=== PATIENT | male | born 1930 | race Caucasian/White ===

== ENCOUNTER 2019-03-27 08:28 | Inpatient (IN) | payer MEDICARE ==
[2019-03-24 09:06] VITALS: BMI 24.5
--- NOTE | 2019-03-26 11:20 | HP ---
HISTORY AND PHYSICAL REASON FOR ADMISSION: Surgery scheduled for 03/27/2019 Gama Gonzalez is an 88-year-old patient seen with symptomatic right knee osteoarthritis. We discussed options for treatment. He elected to proceed with right total knee arthroplasty. Consent was obtained. Medical clearance provided by Dr. Malloy. PAST MEDICAL HISTORY: Hypertension, gastroesophageal reflux disease. PAST SURGICAL HISTORY: Left total knee arthroplasty, bilateral shoulder surgery. DAILY MEDICATIONS: Aspirin, atenolol, Prilosec. ALLERGIES: PENICILLIN. SOCIAL HISTORY: He denies tobacco use. PHYSICAL EXAMINATION: Evaluation of the right knee is range of motion is -7 to 90. Tenderness medial joint line. Crepitus medial patellofemoral compartments. Pain with patellofemoral compression. Ligaments stable. Hip rotation without pain. His distal neurovascular exam is intact. RADIOGRAPHS: Radiographs of the right knee revealed moderate osteoarthritis. IMPRESSION: 1. Right knee osteoarthritis. 2. Hypertension. 3. Gastroesophageal reflux disease. PLAN: Right total knee arthroplasty. Surgery 03/27/2019. MMODL / IJN: [id number] /
[~2019-03-27 08:28] MED LIST: ACETAMINOPHEN TAB 500 MG TAB PO ONE; LIDOCAINE 1% 20 ML VIAL (10MG/ML) FOR IV START INTRADERMA PRN; MELOXICAM 7.5 MG TAB PO ONE; MORPHINE SULFATE 2 MG/ML SYRINGE IV PRN; ONDANSETRON 4 MG/2 ML VIAL IVP ONE; ONDANSETRON 4 MG/2 ML VIAL IVP PRN; TRANEXAMIC ACID 1,000 MG in SODIUM CHLORIDE 0.9% 100 ML IVPB ONE
[2019-03-27] MEDS: LACTATED RINGERS 1,000 ML IV SCH (09:30)
[2019-03-27] MEDS ORDERED: MIDAZOLAM (PF) 2 MG/2 ML VIAL IVP ONE (09:43)
--- NOTE | 2019-03-27 10:01 | P.ANPRN ---
Procedure Note - Anesthesia - Nerve Block Performed Right Adductor Canal Time Out Performed: Yes (:42) Date of Procedure: 03/27/19 Procedure Start Time: : Procedure Stop Time: : Location of Patient Procedure: PreOp Indication: Acute Post-Operative Pain, Requested by physician (Dr Jones) Sedation Type: Sedate with meaningful contact maintained Preparation: Sterile Prep, Sterile Dressing Position: Supine Catheter: Indwelling Needle Types: On-Q Needle Gauge: 21 Technique: Ultrasound Injectate: 0.5% Ropivacaine (see comment for volume) (20cc) Blood Aspirated: No Pain Paresthesia on Injection Noted: No Resistance on Injection: Normal Events: Uneventful and Well Tolerated
[2019-03-27] MEDS ORDERED: ROPIVACAINE 246.25 MG, EPINEPHrine 0.5 MG, KETOROLAC 30 MG, cloNIDine HCL/PF 80 MCG, WA... MISCELLANE ONE ×5 (10:18)
[2019-03-27] MEDS ORDERED: fentaNYL (PF) 50 MCG/ML 2 ML AMP ONE (11:00)
[2019-03-27] MEDS ORDERED: SODIUM CHLORIDE 0.9% 100 ML BAG ONE (11:00)
[2019-03-27] MEDS ORDERED: TRANEXAMIC ACID 1,000 MG/10 ML VIAL ONE (11:00)
[2019-03-27] MEDS ORDERED: MIDAZOLAM 2 MG/2 ML VIAL ONE (11:00)
[2019-03-27] MEDS ORDERED: LACTATED RINGERS 1,000 ML IV ONE (11:46)
[2019-03-27] MEDS ORDERED: ceFAZolin 3,000 MG in SODIUM CHLORIDE 0.9% IRRIGATIO 3,000 ML IRRIGATION ONE (11:57)
[2019-03-27] MEDS ORDERED: HYDROmorphone 0.5 MG/0.5 ML SYRINGE IVP PRN ×3 (12:57)
[2019-03-27] MEDS ORDERED: ONDANSETRON 4 MG/2 ML VIAL IVP PRN (12:57)
[2019-03-27] MEDS ORDERED: NALOXONE 0.4 MG/ML 1 ML VIAL IV PRN (12:57)
--- NOTE | 2019-03-27 12:57 | P.OP ---
Date of Procedure: 03/27/19 Preoperative Diagnosis: Right knee osteoarthritis Postoperative Diagnosis: Same Procedure(s) Performed: Right total knee arthroplasty Implants: 1. Depuy attune size 7 right cruciate-retaining cemented femur 2. Depuy attune size 8 cemented tibial baseplate 3. Depuy attune size 7 5 mm fixed bearing cruciate retaining polyethylene tibial insert 4. Depuy attune 41 mm all polyethylene cemented patella Anesthesia: regional (Adductor canal catheter), local, spinal Surgeon: Kip Jones Insurance Application Investigator #1: Maynor Vivar Estimated Blood Loss (ml): 40 Pathology: other (Bone) Condition: stable Disposition: PACU Indications for Procedure: 88-year-old patient seen with symptomatic right knee osteoarthritis. After treatment options were discussed, he elected to proceed with total knee arthroplasty. Operative Findings: See description of procedure Description of Procedure: Patient was taken to the operative suite after having an adductor canal catheter placed by the department of anesthesia for postoperative pain management. Patient underwent a spinal anesthetic by the department of anesthesia. Patient was given preoperative IV intake antibiotics and TXA. A well-padded tourniquet was placed about the right lower extremity. The lower extremity was then prepped and draped in the normal sterile orthopedic fashion. The extremity was elevated, a tourniquet was insufflated to 300. A standard anterior incision was made sharply through skin. Dissection was taken down through the subcutaneous soft tissues down to the extensor mechanism. A medial arthrotomy was performed, patella was everted and knee was flexed. There was advanced osteoarthritis noted. I introduced my distal intramedullary femoral drill. I then introduced the distal femoral cutting jig. Deepak OLSON secured the cutting jig with 2 pins. I held retractors in position while Deepak OLSON performed the distal femoral resection through the guide area we now removed her distal femoral cutting guide. We now placed our 4-in-1 femoral cutting block and positioned and it was secured with 2 pins by Deepak OLSON while I held the block in position. The distal femoral finishing was now completed. A proximal tibial cutting guide was positioned. I held the guide in the appropriate position with both hands well Deepak OLSON inserted stabilizing pins into the guide. Proximal tibial cut was made. We now placed a trial femoral component into position, along with an appropriate size tibial tray and insert. We now took the knee through range of motion and had full extension good flexion and good overall soft tissue balance noted. The patella was everted and stabilized with 2 towel clips held by Deepak OLSON while I performed a flush with patellar quad tendon utilizing a fresh sawblade. We templated the patella, appropriate drill holes were made. An appropriate trial patella was positioned, knee was taken through full range of motion with the patella tracking very nicely. The trial patella was removed. Drill holes were made through the femoral component. All trial components were removed after marking off the appropriate rotation of the tibia. Retractors were now positioned along the proximal tibia. An appropriate keel punch was made with the appropriate size tibial guide by myself on Deepak OLSON assisted by holding retractors. At this point appropriate size implants were chosen and opened. The joint was irrigated copiously with pulse lavage mechanical irrigation. The posterior capsule was infiltrated with local analgesic. The wound was irrigated with pulse lavage mechanical irrigation. We mixed antibiotic methylmethacrylate. We placed the knee into flexion. We placed multiple retractors assisted by Deepak OLSON to expose the proximal tibia. Once the methyl methacrylate was ready, the tibial component was cemented into place removing any excess methylmethacrylate form by both myself and Deepak OLSON. The femoral component was cemented into place removing the removing any excess methylmethacrylate performed by both myself and Deepak OLSON. We then inserted the appropriate size polyethylene tibial insert. We made sure that it was locked into position. We took the knee into full extension, and then back in a flexion making sure we had removed any excess methylmethacrylate. The patellar component was then cemented down and secured with clamp. Excess methylmethacrylate removed. We kept the knee in full extension, patellar clamp in position until methylmethacrylate had hardened. Once it had hardened the patellar clamp was removed. The knee was taken through full range of motion. The patella tracked nicely. There was good soft tissue balancing. The tourniquet was now released. Additional hemostasis was achieved via electrocautery. A second gram of TXA was given. The wound again was irrigated with pulse lavage mechanical irrigation. The superficial soft tissues were infiltrated local analgesic. The extensor mechanism was repaired with Vicryl. We checked the repair with range of motion and it was stable. The subcutaneous soft tissues were repaired with Vicryl in layers. The skin was approximated with pernio/Dermabond. Sterile dressings were applied followed by loose web roll and Graham bandage. The patient was transferred to a bed, and taken to recovery in stable and satisfactory condition. Deepak OLSON assisted with this complex procedure.
[2019-03-27] MEDS ORDERED: ROPIVACAINE 1,100 MG, SODIUM CHLORIDE 0.9% 500 ML 330 ML MISCELLANE PRN ×2 (13:05)
--- NOTE | 2019-03-27 14:22 | XR ---
EXAMINATION TYPE: XR knee limited RT DATE OF EXAM: 03/27/2019 CLINICAL HISTORY: Postoperative evaluation Two views of the right knee are submitted. Identified are changes of total knee arthroplasty with femoral and tibial components appearing well seated. Postsurgical soft tissue changes are noted. Alignment is anatomic.
[2019-03-27] MEDS: SODIUM CHLORIDE 0.9% 1,000 ML IV SCH (18:21)
[2019-03-27] MEDS: SENNOSIDES-DOCUSATE SODIUM 1 EACH TAB PO SCH (20:35)
[2019-03-28] MEDS: LACTATED RINGERS 1,000 ML IV SCH (05:04)
--- NOTE | 2019-03-28 07:20 | P.PN ---
Progress Note - Text The patient is status post[right ] adductor canal catheter placement. The catheter was placed for postoperative pain control, status post total [ right knee] arthroplasty. Ropivacaine 0.2% is infusing at[8 ] mLs per hour. The patient has no complaints of[ right] lower extremity numbness or weakness. Patient's VAS score is[ 0]-10. Assessment: Patient's adductor canal catheter is in place and working appropriately. Plan: continue infusion and adjust it as needed.
[2019-03-28 07:57] LABS: Basophils # (A) 0.1 k/uL (0-0.2); Basophils % (A) 1 %; Eosinophils # (A) 0.3 k/uL (0-0.7); Eosinophils % (A) 5 %; HCT 39.7 % (39.0-53.0); HGB 12.7 gm/dL (13.0-17.5); Lymphocytes # (A) 1.2 k/uL (1.0-4.8); Lymphocytes % (A) 16 %; MCH 29.9 pg (25.0-35.0); MCHC 32.1 g/dL (31.0-37.0); MCV 93.3 fL (80.0-100.0); Mean Platelet Volume 7.1; Monocytes # (A) 0.5 k/uL (0-1.0); Monocytes % (A) 7 %; Neutrophils % (A) 68 %; Platelet Count 149 k/uL (150-450); RBC 4.25 m/uL (4.30-5.90); WBC 7.3 k/uL (3.8-10.6)
[2019-03-28] MEDS: ENOXAPARIN 40 MG/0.4 ML SYRINGE SQ SCH (08:35)
[2019-03-28] MEDS: SODIUM CHLORIDE 0.9% 1,000 ML IV SCH (08:38)
[2019-03-28] MEDS ORDERED: ATENOLOL 25 MG TAB PO SCH (09:00)
--- NOTE | 2019-03-28 12:39 | P.PN ---
Subjective Progress Note Date: 03/28/19 Principal diagnosis: Status post right total knee arthroplasty Patient was evaluated at bedside today, is resting comfortably in a hospital chair. He did ambulate with therapy today, he is not on stairs at this time. Patient notes adequate pain control. Denies any chest pain or shortness of breath. Objective - Vital Signs Vital signs: Vital Signs Temp 98.3 F 03/28/19 07:00 Pulse 59 L 03/28/19 07:00 Resp 16 03/28/19 07:00 BP 132/62 03/28/19 07:00 Pulse Ox 99 03/28/19 07:00 Intake & Output 03/27/19 03/28/19 03/28/19 18:59 06:59 18:59 Intake Total 1701 600 354 Output Total 440 600 Balance 1261 0 354 Intake: IV 1701 Intake, IV Titration 600 Amount Sodium Chloride 0.9% 1, 600 000 ml @ 50 mls/hr IV . Q20H DURGA Rx#:[id number] Oral 354 Output: Urine 400 600 Estimated Blood Loss 40 - Exam Right lower extremity: Incision is clean, dry, and intact. The exofin fusion tape is in good condition. There is minimal soft tissue swelling and ecchymosis surrounding the medial and lateral aspects of the incision. Calf is soft, no tenderness with palpation. Plantar flexion, dorsiflexion, EHL, FHL are intact. Sensory exam to light touch throughout the extremity is intact, dorsal pedis pulses 2+. - Labs CBC & Chem 7: 03/28/19 07:27 Labs: Abnormal Lab Results - Last 24 Hours (Table) 03/28/19 Range/Units 07:27 RBC 4.25 L (4.30-5.90) m/uL Hgb 12.7 L (13.0-17.5) gm/dL Plt Count 149 L (150-450) k/uL Assessment and Plan Plan: Assessment: Postop day #1 status post right total knee arthroplasty Plan: Pain control, oral medication as needed GI and DVT prophylaxis, continue current medication Encourage incentive spirometer Continue her physical therapy, stair training Ice and elevate often/daily dressing changes Medical recommendations Discharge planning: Due to patient's age, assistance at home and inability to do stairs at this time, would like to keep patient one additional night. Plan for discharge home tomorrow Time with Patient: Less than 30
[2019-03-28] MEDS: HYDROcodone/APAP 5-325MG 1 EACH TAB PO PRN ×2 (14:17→19:56)
[2019-03-28] MEDS: SENNOSIDES-DOCUSATE SODIUM 1 EACH TAB PO SCH (19:56)
[2019-03-29] MEDS: LACTATED RINGERS 1,000 ML IV SCH (01:18)
[2019-03-29] MEDS: SODIUM CHLORIDE 0.9% 1,000 ML IV SCH (01:18)
[2019-03-29] MEDS: HYDROcodone/APAP 5-325MG 1 EACH TAB PO PRN ×3 (05:30→20:46)
[2019-03-29] MEDS: ENOXAPARIN 40 MG/0.4 ML SYRINGE SQ SCH (09:15)
--- NOTE | 2019-03-29 11:43 | P.PN ---
Subjective Progress Note Date: 03/29/19 Principal diagnosis: Status post right total knee arthroplasty Patient was evaluated at bedside today, is resting comfortably in a hospital chair. Patient did have a very difficult time getting out of chair yesterday, he had significant discomfort. Denies chest pain or shortness of breath. Objective - Vital Signs Vital signs: Vital Signs Temp 97.8 F 03/29/19 07:00 Pulse 64 03/29/19 07:00 Resp 15 03/29/19 08:00 BP 127/68 03/29/19 07:00 Pulse Ox 97 03/29/19 07:00 Intake & Output 03/28/19 03/29/19 03/29/19 18:59 06:59 18:59 Intake Total 826 480 240 Balance 826 480 240 Intake: Oral 826 480 240 Other: # Voids 3 1 - Exam Right lower extremity: Incision is clean, dry, and intact. The exofin fusion tape is in good cond ition. There is minimal soft tissue swelling and ecchymosis surrounding the medial and lateral aspects of the incision. Calf is soft, no tenderness with palpation. Plantar flexion, dorsiflexion, EHL, FHL are intact. Sensory exam to light touch throughout the extremity is intact, dorsal pedis pulses 2+. - Labs CBC & Chem 7: 03/28/19 07:27 Assessment and Plan Plan: Assessment: Postop day #2 status post right total knee arthroplasty Plan: Pain control, oral medication as needed GI and DVT prophylaxis, continue current medication Encourage incentive spirometer Continue her physical therapy, stair training Ice and elevate often/daily dressing changes Medical recommendations Discharge planning: With patient having difficulty getting in and out of bed and out of the chair, considering his age and other medical comorbidities, will try for rehab discharge. Social work/case management has been notified and are working on this. Time with Patient: Less than 30
[2019-03-29 19:48] VITALS: RESP 14
[2019-03-29] MEDS: SENNOSIDES-DOCUSATE SODIUM 1 EACH TAB PO SCH (20:45)
[2019-03-30] MEDS: SODIUM CHLORIDE 0.9% 1,000 ML IV SCH (00:15)
[2019-03-30] MEDS: LACTATED RINGERS 1,000 ML IV SCH (00:16)
[2019-03-30 08:28] VITALS: BP 110/66; PULSE 96; TEMP 98.9
[2019-03-30] MEDS: ENOXAPARIN 40 MG/0.4 ML SYRINGE SQ SCH (08:37)
[2019-03-30] MEDS: HYDROcodone/APAP 5-325MG 1 EACH TAB PO PRN (08:40)
[2019-03-30 08:58] LABS: Basophils % (A) 1 %; Eosinophils # (A) 0.6 k/uL (0-0.7); Eosinophils % (A) 9 %; HCT 39.5 % (39.0-53.0); HGB 12.5 gm/dL (13.0-17.5); Lymphocytes # (A) 0.9 k/uL (1.0-4.8); Lymphocytes % (A) 14 %; MCH 29.8 pg (25.0-35.0); MCHC 31.7 g/dL (31.0-37.0); MCV 93.7 fL (80.0-100.0); Mean Platelet Volume 7.4; Monocytes # (A) 0.6 k/uL (0-1.0); Monocytes % (A) 10 %; Neutrophils # (A) 4.2 k/uL (1.3-7.7); Neutrophils % (A) 63 %; Platelet Count 144 k/uL (150-450); RBC 4.22 m/uL (4.30-5.90); RDW 13.9 % (11.5-15.5); WBC 6.7 k/uL (3.8-10.6)
[2019-03-30] MEDS ORDERED: PANTOPRAZOLE 40 MG TABLET PO SCH (10:15)
--- NOTE | 2019-03-30 13:08 | P.PN ---
Subjective Progress Note Date: 03/30/19 Principal diagnosis: Status post right total knee arthroplasty Patient was evaluated at bedside today, is resting comfortably in a hospital chair. Denies chest pain or shortness of breath. Objective - Vital Signs Vital signs: Vital Signs Temp 98.9 F 03/30/19 07:00 Pulse 96 03/30/19 07:00 Resp 14 03/30/19 07:00 BP 110/66 03/30/19 07:00 Pulse Ox 95 03/30/19 07:00 Intake & Output 03/29/19 03/30/19 03/30/19 18:59 06:59 18:59 Intake Total 476 Output Total 400 Balance 476 -400 Intake: Oral 476 Output: Urine 400 Other: # Voids 1 - Exam Right lower extremity: Incision is clean, dry, and intact. The exofin fusion tape is in good condition. There is minimal soft tissue swelling and ecchymosis surrounding the medial and lateral aspects of the incision. Calf is soft, no tenderness with palpation. Plantar flexion, dorsiflexion, EHL, FHL are intact. Sensory exam to light touch throughout the extremity is intact, dorsal pedis pulses 2+. - Labs CBC & Chem 7: 03/30/19 07:36 Labs: Abnormal Lab Results - Last 24 Hours (Table) 03/30/19 Range/Units 07:36 RBC 4.22 L (4.30-5.90) m/uL Hgb 12.5 L (13.0-17.5) gm/dL Plt Count 144 L (150-450) k/uL Lymphocytes # 0.9 L (1.0-4.8) k/uL Assessment and Plan Plan: Assessment: Postop day #3 status post right total knee arthroplasty Plan: Pain control, plan for discharge on Mary[place] 5 mg/5 mg GI and DVT prophylaxis, aspirin 81 mg twice a day Encourage incentive spirometer Continue her physical therapy, stair training Ice and elevate often/daily dressing changes Medical recommendations Discharge planning: We'll discharge to rehab today Time with Patient: Less than 30
--- NOTE | 2019-03-30 13:09 | P.DS ---
Providers Date of admission: 03/27/2019 Expected date of discharge: 03/30/19 Attending physician: Kip Jones Consults: 03/27/19 12:57 Consult Physician Routine Consulting Provider: Manuel Malloy Reason/Comments: Medical management Do you want consulting provider notified?: Yes Primary care physician: Manuel Malloy Hospital Course: Date of admission: 03/27/2019 Date of discharge: 03/30/2019 Admission diagnosis: Status post right total knee arthroplasty Discharge diagnosis: Same Attending physician: Dr. Jones Surgical procedures: Right total knee arthroplasty Brief history: Patient is a 88-year-old male with a history of progressive primary right knee osteoarthritis. At this point patient has failed conservative treatment measures and has opted to proceed with a elective right total knee arthroplasty. Hospital course: Details of patient's surgery can be found in operative report. Patient tolerated the procedure well and was subsequently transported to orthopedic floor. Patient's orthopeidc and medical care was provided daily. Patient had daily laboratory tests performed for evaluation of overall blood counts. Patient had daily physical therapy to include strengthening range of motion as well as education with walker ambulation. Patient had daily CPM usage as part of their physical therapy program. Patient was treated with Lovenox for their postoperative DVT prophylaxis during their inpatient stay. Patient was noted to have a relatively uneventful postoperative course. Patient reported satisfactory pain control with oral pain medications by postoperative day 0. Patient showed satisfactory progress with physical therapy. Patient moved steadily through the program and had no difficulty meeting the goals by postoperative day 3. Given patient's otherwise satisfactory course and having met physical therapy goals, plan is to discharge patient rehab on postoperative day 3. Discharge condition/disposition: Patient will be discharged to rehab in stable condition. Discharge medications: Instructions are given on resumption of patient's normal daily medications per primary care recommendation, in addition patient will be p rescribed [place] 5 mg/325 mg, Colace 100 mg, Pepcid 20 mg, aspirin 81 mg. Discharge instructions: 1. Wound care and infection precautions, keep incision dry and covered while showering, no lotions, creams, moisturizers. No soaking, tubs, pools, hottubs. Do not scrub over the incision. 2. Weight-bear as tolerated with walker / cane until follow-up. 3. Ice and elevate when necessary. Do not exceed 20 minutes per hour with ice pack. 4. Utilize compression sleeve until seen at first follow up appointment. 5. Visiting nursing care. 6. Home physical therapy including home CPM. 7. Pain meds and anticoagulants per prescription. 8. Pain medication has potential to cause constipation. Increase oral fluid and fiber intake. Contact primary care provider if you have not had a bowel movement within 48 hours after discharge 9. No anti-inflammatory medication until discussed at first post operative visit, this including Motrin, Aleve, Mobic, Diclofenac. 10. Follow up in office at 2 weeks postop with Deepak Vivar PA-C 11. Follow up with your primary care doctor 7-10 days after discharge. 12. Contact [facility] with any questions, . Procedures: Right total knee arthroplasty Patient Condition at Discharge: Good Plan - Discharge Summary Discharge Rx Participant: Yes New Discharge Prescriptions: New Aspirin [Adult Low Dose Aspirin EC] 81 mg PO BID #60 tablet. Hydrocodone/Acetaminophen [[place] 5-325] 1 - 2 each PO Q6HR PRN #56 tab PRN Reason: Pain Docusate [Colace] 100 mg PO DAILY #15 capsule Omeprazole [PriLOSEC] 20 mg PO AC-BRKFST #1 cap No Action amLODIPine BESYLATE/BENAZEPRIL [amLODIPine BESYLATE/BENAZEPRIL 5-20 MG] 1 cap PO DAILY Multivitamins, Thera [Multivitamin (formulary)] 1 tab PO DAILY Atenolol [Tenormin] 25 mg PO DAILY Allopurinol [Zyloprim] 100 mg PO DAILY Hamilton-3 Fatty Acids/Fish Oil [Fish Oil 1,000 mg Softgel] 1 cap PO DAILY Discharge Medication List Allopurinol [Zyloprim] 100 mg PO DAILY 03/24/19 [History] Atenolol [Tenormin] 25 mg PO DAILY 03/24/19 [History] Multivitamins, Thera [Multivitamin (formulary)] 1 tab PO DAILY 03/24/19 [History] Hamilton-3 Fatty Acids/Fish Oil [Fish Oil 1,000 mg Softgel] 1 cap PO DAILY 03/24/19 [History] amLODIPine BESYLATE/BENAZEPRIL [amLODIPine BESYLATE/BENAZEPRIL 5-20 MG] 1 cap PO DAILY 03/24/19 [History] Aspirin [Adult Low Dose Aspirin EC] 81 mg PO BID #60 tablet. 03/29/19 [Rx] Docusate [Colace] 100 mg PO DAILY #15 capsule 03/29/19 [Rx] Hydrocodone/Acetaminophen [[place] 5-325] 1 - 2 each PO Q6HR PRN #56 tab 03/29/19 [Rx] Omeprazole [PriLOSEC] 20 mg PO AC-BRKFST #1 cap 03/30/19 [Rx] Follow up Appointment(s)/Referral(s): [facility],Equipment [NON-STAFF] - As Needed (Continuous Passive Motion knee machine ) Mayonr Vivar, PAC [PHYSICIAN MANAGER MATERIALS MANAGEMENT] - 2 Weeks [facility] Visiting Nurse, [NON-STAFF] - As Needed Activity/Diet/Wound Care/Special Instructions: Continue holding the Norvasc/benzapril as patient's blood pressures in the low 100s . Reevaluate outpatient with [facility]CF PCP for further recommendations. Orthopedic Discharge Instructions: 1. Wound care and infection precautions, keep incision dry and covered while showering, no lotions, creams, moisturizers. No soaking, pools, hot tubs. Do not scrub over incision. 2. Weight-bear as tolerated with walker / cane until follow-up. 3. Ice and elevate when necessary. Do not exceed 20 minutes per hour with ice pack. 4. Utilize compression sleeve until seen at first follow up appointment. 5. Pain meds and anticoagulants per prescription. 6. Pain medication has potential to cause constipation. Increase oral fluid and fiber intake. Contact primary care provider if you have not had a bowel movement within 48 hours after discharge. 7. No anti-inflammatory medication until discussed at first post operative visit, this including Motrin, Aleve, Mobic, Diclofenac. 8. Follow up in office at 2 weeks postop with Deepak Vivar PA-C 9. Follow up with your primary care doctor 7-10 days after discharge. 10. Contact [facility] with any questions, . Discharge Disposition: TRANSFER TO SNF/F
--- NOTE | 2019-03-30 14:28 | P.CONS ---
History of Present Illness - Reason for Consult Consult date: 03/28/19 Medical management hypertension, gastroesophageal reflux disease Requesting physician: Kip Jones - Chief Complaint Symptomatic right knee osteoarthritis - History of Present Illness This is an 88-year-old gentleman with history of hypertension, gastroesophageal reflux disease, status post right total knee arthroplasty for symptomatic right knee osteoarthritis. Tolerated procedure well. Pain control improved with the adductor canal catheter placement. He ambulated with physical therapy, tolerated exertion well . Denies lightheadedness dizziness or focal deficits. Passing minimal flatus, no bowel movement. Incentive spirometer up to 1999. Denies nausea vomiting or diarrhea. Antihypertensives remain on hold at this time as patient's systolic blood pressure in the low 100s, postop. Denies chest pain, palpitations or shortness of breath. Review of Systems ROS Statement: Those systems with pertinent positive or pertinent negative responses have been documented in the HPI. ROS Other: All systems not noted in ROS Statement are negative. Past Medical History Past Medical History: Cancer, Deep Vein Thrombosis (DVT), GERD/Reflux, Hypertens ion, Osteoarthritis (OA), Renal Disease Additional Past Medical History / Comment(s): PROSTATE CA (2001 with surgery).,STATES 50% KIDNEY FUNCTION, HEMORRHOIDS, PAST HX OF GERD., DVT AFTER KNEE SURGERY., HX OF POSITIVE TB TEST WITH TX AT 15 YRS OLD., PAIN RIGHT KNEE- USING CANE. History of Any Multi-Drug Resistant Organisms: None Reported Past Surgical History: Joint Replacement, Orthopedic Surgery, Prostate Surgery Additional Past Surgical History / Comment(s): left knee replacement 2008, prostate removal, Bowel Resection due to colon abscess., Fx right hip with Alonso Arthroplasty (10/2017) Past Anesthesia/Blood Transfusion Reactions: No Reported Reaction Past Psychological History: No Psychological Hx Reported Smoking Status: Former smoker Past Alcohol Use History: Occasional Additional Past Alcohol Use History / Comment(s): quit yrs ago (1983), smoked 2-3 PPD, Smoked approx 10 years. Past Drug Use History: None Reported - Past Family History Brother(s) Family Medical History: Cancer Medications and Allergies Home Medications Medication Instructions Recorded Confirmed Type Allopurinol [Zyloprim] 100 mg PO DAILY 03/24/19 03/28/19 History Atenolol [Tenormin] 25 mg PO DAILY 03/24/19 03/28/19 History Multivitamins, Thera [Multivitamin 1 tab PO DAILY 03/24/19 03/28/19 History (formulary)] [place]-3 Fatty Acids/Fish Oil [Fish 1 cap PO DAILY 03/24/19 03/28/19 History Oil 1,000 mg Softgel] Aspirin [Adult Low Dose Aspirin EC] 81 mg PO BID #60 tablet. 03/29/19 Rx Docusate [Colace] 100 mg PO DAILY #15 capsule 03/29/19 Rx Hydrocodone/Acetaminophen [[place] 1 - 2 each PO Q6HR PRN #56 tab 03/29/19 Rx 5-325] Omeprazole [PriLOSEC] 20 mg PO AC-BRKFST #1 cap 03/30/19 Rx amLODIPine BESYLATE/BENAZEPRIL 1 cap PO DAILY #0 03/30/19 03/28/19 Rx [amLODIPine BESYLATE/BENAZEPRIL 5-20 MG] Allergies Allergy/AdvReac Type Severity Reaction Status Date / Time Penicillins Allergy Rash/Hives Verified 03/24/19 08:23 NSAIDS (Non-Steroidal AdvReac Unknown PT STATES Verified 03/24/19 09:04 Anti-Inflamma NO NSAIDS D/T KIDNEY DISEASE. Physical Exam Vitals: Vital Signs Temp Pulse Resp BP Pulse Ox 03/28/19 15:00 98.7 F 59 L 16 122/65 97 03/28/19 07:00 98.3 F 59 L 16 132/62 99 03/28/19 01:11 98.2 F 61 18 146/74 99 03/27/19 19:36 97.5 F L 44 L 18 141/64 96 Intake and Output 03/28/19 03/28/19 03/28/19 06:59 14:59 22:59 Intake Total 450 590 Output Total 600 Balance -150 590 Intake: Intake, IV Titration 450 Amount Sodium Chloride 0.9% 1, 450 000 ml @ 50 mls/hr IV . Q20H [facility] Rx#:[id number] Oral 590 Output: Urine 600 Other: # Voids 3 PHYSICAL EXAM: VITAL SIGNS: [As above] GENERAL: Sitting up in bed, no acute distress HEENT: Conjunctivae normal. eyes normal. Oral mucosa moist NECK: No JVD. No thyroid enlargement. No LNs CARDIOVASCULAR: S1, S2 regular.. No murmur RESPIRATION: Breath sounds diminished in the bases. No rhonchi or crackles. No bronchial breathing. ABDOMEN: Soft, nontender . No guarding. no masses palpable. No ascites, No hepatosplenomegaly.Bowel sounds heard. LEGS: Status post surgery of right knee ,right minimal swelling, positive tenderness. Positive DP pulse PSYCHIATRY: Alert and oriented X3, mood and affect normal. NERVOUS SYSTEM: Cranial N 2-12 grossly normal. Moves all 4 limbs. Diffuse weakness No focal deficits. Strength and sensation grossly intact.. Lymphatic system. No LN neck axilla or groin. Results CBC & Chem 7: 03/30/19 07:36 Labs: Abnormal Lab Results - Last 24 Hours (Table) 03/28/19 Range/Units 07:27 RBC 4.25 L (4.30-5.90) m/uL Hgb 12.7 L (13.0-17.5) gm/dL Plt Count 149 L (150-450) k/uL Assessment and Plan Assessment: -Status post right total knee arthroplasty -Hypertension currently maintaining systolic blood pressures in the low 100s, will hold off on Norvasc/quan combo to avoid postoperative hypotension -Gastroesophageal reflux, GI prophylaxis in place Plan: Continue current medication regime ,monitoring and symptomatic treatment. Pain management, anticoagulation as per primary. All meds have been reviewed and resumed accordingly. Aggressive pulmonary toileting with incentive spirometer reinforced .Discharge planning in progress for tomorrow as per orthopedic surgery. Further recommendations to follow. Thank you Dr. Rupal Fernández for allowing us to participate in the care of of this pleasant gentleman. The impression and plan of care has been dictated as directed. : I performed a history and examination of this patient, discussed the same with the dictator. I agree with the dictator's note ,documented as a scribe. Any additional findings or plans will be noted. Time taken: 35 minutes
--- NOTE | 2019-03-30 15:03 | P.PN ---
Subjective Progress Note Date: 03/29/19 This is an 88-year-old gentleman with history of hypertension, gastroesophageal reflux disease, status post right total knee arthroplasty for symptomatic right knee osteoarthritis. Tolerated procedure well. Pain control improved with the adductor canal catheter placement. He ambulated with physical therapy, tolerated exertion well . Denies lightheadedness dizziness or focal deficits. Passing minimal flatus, no bowel movement. Incentive spirometer up to 2000. Denies nausea vomiting or diarrhea. Antihypertensives remain on hold at this time as patient's systolic blood pressure in the low 100s, postop. Denies chest pain, palpitations or shortness of breath. 03/29/2019 PT evaluated patient, reporting limited range of motion, fatigued easily with ambulation, poor balance, decreased endurance and poor safety awareness. Subacute rehab recommended, patient in agreement with. Pain better controlled today. Passing flatus, no bowel movement. Denies chest pain, palpitations or increased shortness of breath. Denies lightheadedness dizziness or focal deficits. Objective - Vital Signs Vital signs: Vital Signs Temp 97.5 F L 03/29/19 15:00 Pulse 83 03/29/19 15:00 Resp 16 03/29/19 15:00 BP 88/62 03/29/19 15:00 Pulse Ox 97 03/29/19 15:00 Intake & Output 03/28/19 03/29/19 03/29/19 18:59 06:59 18:59 Intake Total 826 480 240 Balance 826 480 240 Intake: Oral 826 480 240 Other: # Voids 3 1 1 - Exam PHYSICAL EXAM: VITAL SIGNS: [As above] GENERAL: Sitting up in bed, no acute distress HEENT: Conjunctivae normal. eyes normal. Oral mucosa moist NECK: No JVD. No thyroid enlargement. No LNs CARDIOVASCULAR: S1, S2 regular.. No murmur RESPIRATION: Breath sounds diminished in the bases. No rhonchi or crackles. No bronchial breathing. ABDOMEN: Soft, nontender . No guarding. no masses palpable. No ascites, No hepatosplenomegaly.Bowel sounds heard. LEGS: Status post surgery of right knee , decreasing -minimal swelling, positive tenderness. Positive DP pulse PSYCHIATRY: Alert and oriented X3, mood and affect normal. NERVOUS SYSTEM: Cranial N 2-12 grossly normal. Moves all 4 limbs. Diffuse weakness, No focal deficits. Strength and sensation grossly intact.. - Labs CBC & Chem 7: 03/30/19 07:36 Assessment and Plan Assessment: -Status post right total knee arthroplasty -Hypertension -Gastroesophageal reflux, GI prophylaxis in place Plan: Continue current medication regime ,monitoring and symptomatic treatment. Continue holding Norvasc/quan combo. Pain management, anticoagulation as per primary. Maintain aggressive pulmonary toileting with incentive spirometer reinforced .Discharge planning in progress for subacute rehab as per orthopedic surgery. Further recommendations to follow. Thank you Dr. Jones for the consult. The impression and plan of care has been dictated as directed. : I performed a history and examination of this patient, discussed the same with the dictator. I agree with the dictator's note ,documented as a scribe. Any additional findings or plans will be noted. Time taken: 35 minutes
--- NOTE | 2019-03-30 18:04 | P.PN ---
Subjective Progress Note Date: 03/30/19 This is an 88-year-old gentleman with history of hypertension, gastroesophageal reflux disease, status post right total knee arthroplasty for symptomatic right knee osteoarthritis. Tolerated procedure well. Pain control improved with the adductor canal catheter placement. He ambulated with physical therapy, tolerated exertion well . Denies lightheadedness dizziness or focal deficits. Passing minimal flatus, no bowel movement. Incentive spirometer up to 2000. Denies nausea vomiting or diarrhea. Antihypertensives remain on hold at this time as patient's systolic blood pressure in the low 100s, postop. Denies chest pain, palpitations or shortness of breath. 03/29/2019 PT evaluated patient, reporting limited range of motion, fatigued easily with ambulation, poor balance, decreased endurance and poor safety awareness. Subacute rehab recommended, patient in agreement with. Pain better controlled today. Passing flatus, no bowel movement. Denies chest pain, palpitations or increased shortness of breath. Denies lightheadedness dizziness or focal deficits. 03/30/2019. Pain controlled. Diet intake fair, doesn't like the hospital food. Denies nausea vomiting or diarrhea. Ambulating with PT, tolerating exertion well. Denies chest pain, palpitations or shortness of breath. Afebrile. VSS, Hgb 12.5. Objective - Vital Signs Vital signs: Vital Signs Temp 98.9 F 03/30/19 07:00 Pulse 96 03/30/19 07:00 Resp 14 03/30/19 07:00 BP 110/66 03/30/19 07:00 Pulse Ox 95 03/30/19 07:00 Intake & Output 03/29/19 03/30/19 03/30/19 18:59 06:59 18:59 Intake Total 476 Output Total 400 Balance 476 -400 Intake: Oral 476 Output: Urine 400 Other: # Voids 1 - Exam PHYSICAL EXAM: VITAL SIGNS: [As above] GENERAL: Sitting up in bed, no acute distress HEENT: Conjunctivae normal. eyes normal. Oral mucosa moist NECK: No JVD. No thyroid enlargement. No LNs CARDIOVASCULAR: S1, S2 regular.. No murmur RESPIRATION: Breath sounds diminished in the bases. No rhonchi or crackles. No wheezing. ABDOMEN: Soft, nontender . No guarding. no masses palpable. Bowel sounds heard. LEGS: Status post surgery of right knee , decreasing -minimal swelling, warmth, positive tenderness. Positive DP pulse PSYCHIATRY: Alert and oriented X3, mood and affect normal. NERVOUS SYSTEM: Cranial N 2-12 grossly normal. Moves all 4 limbs. Diffuse weakness, No focal deficits. Strength and sensation grossly intact.. - Labs CBC & Chem 7: 03/30/19 07:36 Labs: Abnormal Lab Results - Last 24 Hours (Table) 03/30/19 Range/Units 07:36 RBC 4.22 L (4.30-5.90) m/uL Hgb 12.5 L (13.0-17.5) gm/dL Plt Count 144 L (150-450) k/uL Lymphocytes # 0.9 L (1.0-4.8) k/uL Assessment and Plan Assessment: -Status post right total knee arthroplasty -Hypertension -Gastroesophageal reflux, GI prophylaxis in place Plan: Continue current medication regime ,monitoring and symptomatic treatment. Patient is being discharged to [facility] subacute rehab today. Continue holding Norvasc/quan combo. Pain management, anticoagulation as per primary. Maintain aggressive pulmonary toileting with incentive spirometer reinforced .Thank you Dr. Jones for the consult. The impression and plan of care has been dictated as directed. : I performed a history and examination of this patient, discussed the same with the dictator. I agree with the dictator's note ,documented as a scribe. Any additional findings or plans will be noted. Time taken: 35 minutes
[2019-03-31] MEDS ORDERED: MULTIVITAMINS, THERA 1 EACH TAB PO SCH (09:00)
[2019-03-31] MEDS ORDERED: ALLOPURINOL 100 MG TAB PO SCH (09:00)
[2019-03-31] MEDS ORDERED: NON-FORMULARY DRUG (Omega-3 Fatty Acids/Fish Oil [Fish Oil 1,000 Mg Softgel] 1 CAP) PO SCH (09:00)
== END 2019-03-30 14:22 | disposition home health service (06) | DRG 470 ==
LOC: OR 08:28 → 4SSUR 13:58 → OR 03-28 12:35 → 4SSUR 03-28 14:56
PROVIDERS: ADMIT Orthopaedic Surgery; ATTEND Orthopaedic Surgery
PROC: 0SRC0J9 Replacement of Right Knee Joint with Synthetic Substitute, Cemented, Open Approach (ICD-10-PCS; principal; 2019-03-27 10:15)
DX: M17.11 Unilateral primary osteoarthritis, right knee (principal); I10 Essential (primary) hypertension; K21.9 Gastro-esophageal reflux disease without esophagitis; K64.9 Unspecified hemorrhoids; M10.9 Gout, unspecified; Z79.82 Long term (current) use of aspirin; Z79.899 Other long term (current) drug therapy; Z85.46 Personal history of malignant neoplasm of prostate; Z87.891 Personal history of nicotine dependence; Z86.718 Personal history of other venous thrombosis and embolism; Z96.652 Presence of left artificial knee joint; Z88.6 Allergy status to analgesic agent; Z88.0 Allergy status to penicillin; Z80.9 Family history of malignant neoplasm, unspecified
CPT/HCPCS: 85025; 88300

== ENCOUNTER 2019-07-15 11:43 | Emergency (ER) | payer MEDICARE ==
[2019-07-15 11:50] VITALS: TEMP 97.5
--- NOTE | 2019-07-15 12:14 | ED ---
General Adult HPI - General Chief complaint: Abdominal Pain Stated complaint: CONSTIPATION X 2 WEEKS Time Seen by Provider: 07/15/19 11:54 Source: patient, RN notes reviewed Mode of arrival: ambulatory Limitations: no limitations - History of Present Illness Initial comments: 88-year-old male presents emergency Department chief complaint constipation. Patient had no stool output in 2 weeks. Patient states that he called his PCP who too old and to use prune juice. He's been using a 1 week with no help. Patient denies any pain, loading or distention. Patient had old abdominal surgical no recent surgeries. Patient states he has no complaints other than he is constipated. Denies fever, chills, chest pain, shortness of breath, dysuria, hematuria - Related Data Home Medications Medication Instructions Recorded Confirmed Allopurinol [Zyloprim] 100 mg PO DAILY 03/24/19 03/28/19 Atenolol [Tenormin] 25 mg PO DAILY 03/24/19 03/28/19 Multivitamins, Thera [Multivitamin 1 tab PO DAILY 03/24/19 03/28/19 (formulary)] [place]-3 Fatty Acids/Fish Oil [Fish 1 cap PO DAILY 03/24/19 03/28/19 Oil 1,000 mg Softgel] Previous Rx's Medication Instructions Recorded Aspirin [Adult Low Dose Aspirin EC] 81 mg PO BID #60 tablet. 03/29/19 Docusate [Colace] 100 mg PO DAILY #15 capsule 03/29/19 Hydrocodone/Acetaminophen [[place] 1 - 2 each PO Q6HR PRN #56 tab 03/29/19 5-325] Omeprazole [PriLOSEC] 20 mg PO AC-BRKFST #1 cap 03/30/19 amLODIPine BESYLATE/BENAZEPRIL 1 cap PO DAILY #0 03/30/19 [amLODIPine BESYLATE/BENAZEPRIL 5-20 MG] Allergies Allergy/AdvReac Type Severity Reaction Status Date / Time Penicillins Allergy Rash/Hives Verified 07/15/19 11:47 NSAIDS (Non-Steroidal AdvReac Unknown PT STATES Verified 07/15/19 11:47 Anti-Inflamma NO NSAIDS D/T KIDNEY DISEASE. Review of Systems ROS Statement: Those systems with pertinent positive or pertinent negative responses have been documented in the HPI. ROS Other: All systems not noted in ROS Statement are negative. Past Medical History Past Medical History: Cancer, GERD/Reflux, Hypertension Additional Past Medical History / Comment(s): Prostate CA, increased heart rate, chronic kidney disease. History of Any Multi-Drug Resistant Organisms: None Reported Past Surgical History: Joint Replacement, Prostate Surgery Additional Past Surgical History / Comment(s): left knee replacement 2009, prostate removal, colon surgery removed abcess, R knee Past Anesthesia/Blood Transfusion Reactions: No Reported Reaction Past Psychological History: No Psychological Hx Reported Smoking Status: Former smoker Past Alcohol Use History: Occasional Past Drug Use History: None Reported - Past Family History Brother(s) Family Medical History: Cancer General Exam Limitations: no limitations General appearance: alert, in no apparent distress Head exam: Present: atraumatic, normocephalic, normal inspection Neck exam: Present: normal inspection, full ROM. Absent: tenderness, meningismus, lymphadenopathy Respiratory exam: Present: normal lung sounds bilaterally. Absent: respiratory distress, wheezes, rales, rhonchi, stridor Cardiovascular Exam: Present: regular rate, normal rhythm, normal heart sounds. Absent: systolic murmur, diastolic murmur, rubs, gallop, clicks GI/Abdominal exam: Present: soft, normal bowel sounds. Absent: distended, tenderness, guarding, rebound, rigid Back exam: Absent: CVA tenderness (R), CVA tenderness (L) Neurological exam: Present: alert, oriented X3, CN II-XII intact Skin exam: Present: warm, dry, intact, normal color. Absent: rash Course Vital Signs 07/15/19 11:47 Temperature 97.5 F L Pulse Rate 68 Respiratory 18 Rate Blood Pressure 135/74 O2 Sat by Pulse 99 Oximetry Medical Decision Making - Medical Decision Making Patient was given an enema in emergency department by RN, patient had a large bowel movement and feels comfortable discharge at this time he is stable for discharge Disposition Clinical Impression: Constipation Disposition: HOME SELF-CARE Condition: Stable Instructions (If sedation given, give patient instructions): Constipation (ED) Additional Instructions: Please return to the Emergency Department if symptoms worsen or any other concerns. Is patient prescribed a controlled substance at d/c from ED?: No Referrals: Manuel Malloy DO [Primary Care Provider] - 1-2 days Time of Disposition: 14:00
--- NOTE | 2019-07-15 13:04 | XR ---
EXAMINATION TYPE: XR KUB , 2 VIEWS DATE OF EXAM ORDERED: 07/15/2019 HISTORY: pain. COMPARISON: None. FINDINGS: There is a small pleural reaction on the left. I could not exclude a small effusion. There is a right hip hemiarthroplasty in place. The entire prosthetic has not been visualized. There are numerous surgical clips within the pelvis. There are degenerative changes within the spine. The a bdominal gas pattern is normal. There is no evidence of obstruction or free air. There are phlebolith s within the pelvis. There is some feces present throughout the right side of the colon. IMPRESSION: FINDINGS CONSISTENT WITH MILD CONSTIPATION.
[2019-07-15 14:18] VITALS: BP 142/80; PULSE 62; RESP 20
== END 2019-07-15 14:16 | disposition home or self-care (01) ==
LOC: EC 11:43
DX: K59.00 Constipation, unspecified (principal); I12.9 Hypertensive chronic kidney disease with stage 1 through stage 4 chronic kidney disease, or unspecified chronic kidney disease; N18.9 Chronic kidney disease, unspecified; K21.9 Gastro-esophageal reflux disease without esophagitis; Z79.899 Other long term (current) drug therapy; Z88.0 Allergy status to penicillin; Z88.6 Allergy status to analgesic agent; Z87.891 Personal history of nicotine dependence; Z96.652 Presence of left artificial knee joint; Z85.46 Personal history of malignant neoplasm of prostate
CPT/HCPCS: 74018; 99284